=== PATIENT | female | born 1940 | race Caucasian/White ===

== ENCOUNTER 2017-11-11 06:27 | Day surgery (SDC) | payer MEDICARE ==
[2017-11-07 10:01] VITALS: BMI 27.0
[2017-11-11] MEDS ORDERED: CEFAZOLIN/Water 2 GM/20 ML SYRINGE ONE (07:38)
[2017-11-11] MEDS ORDERED: Famotidine/PF 20 mg/2ml Vial ONE (08:25)
[2017-11-11] MEDS ORDERED: Fentanyl 100 MCG/2 ML VIAL ONE (08:25)
[2017-11-11] MEDS ORDERED: Bupivacaine PF 0.5% 30 ML VIAL ONE (08:30)
[2017-11-11] MEDS ORDERED: Betamet Acet/Betamet Na Ph 30 MG/5 ML VIAL ONE (08:30)
[2017-11-11] MEDS ORDERED: Bacitracin Zinc Ointment 30 gm TUBE ONE (08:30)
[2017-11-11] MEDS ORDERED: hydrALAZINE 20 MG/ML VIAL ONE (08:39)
--- NOTE | 2017-11-11 10:44 | OP ---
DATE OF PROCEDURE: 11/11/2017 SURGEON: Dr. Zac Suarez PREOPERATIVE DIAGNOSES: 1. Left carpal tunnel syndrome. 2. Left thumb carpometacarpal osteoarthritis. PROCEDURE: 1. Left thumb carpometacarpal joint injection with 2 mL of Celestone, 80 mg per mL to the left thumb carpometacarpal joint under fluoroscopy. 2. Carpal tunnel release, left. TOURNIQUET TIME: 14 minutes total. COMPLICATIONS: None. FINDINGS: Tight transverse carpal ligament with mild stippling, center portion median nerve within t he transverse carpal ligament and carpal canal. DESCRIPTION OF PROCEDURE: After successful general anesthesia using propofol and mask technique augm ented by 12 mL of 0.5% Marcaine block given before prepping and draping sterilely, the patient had th e limb prepped and draped. Limb was exsanguinated, tourniquet inflated to 250 mmHg pressure. Then, outlined incision in line with the ring finger as far distal as Mckeon's cardinal lines for as proximal as 5 mm distal to the volar wrist flexion crease. The incision was 2.5 cm long, carried thr ough skin and subcutaneous tissue until we visualized the transverse carpal ligament. We retracted t he palmaris longus and went right under the bed through the center portion of the transcarpal ligamen t until we visualized nerve tissue. Then when the center point distal released it under direct visua lization using a combination of both a [place] blade and tenotomy scissors. Had a type 1 motor nerve takeoff which was preserved. There was no ganglion seen. We then under direct visualization using the same techniques and released the proximal one-half. It was completely free of the transverse carpal ligament. The transcarpal ligament was completely relea sed and visualized. We inspected the median nerve and found no tenosynovitis of the flexor tendons, but there was stippli ng without hourglass formation in the center portion of the median nerve under the transverse carpal ligament. We placed 3 mL of Celestone in a drip technique in this area. We then released the tourniquet and galeano d hemostasis, closed the wound with interrupted 4-0 nylon in a mattress pattern. We then brought the C-arm into the field, visualized directly the carpometacarpal joint, placed a nee dle over it. We distracted the joint and placed the needle inside under C-arm supervision in the fro ntal and sagittal plane. We injected 2 mL. There were no complications. Bulky dressing was applie d with bacitracin and Adaptic over the incisions and 4 x 4s, Kerlix underneath the Maxime wrap. She lef t the operating room without complications.
[2017-11-11] MEDS ORDERED: Ondansetron HCl/PF 4 MG/2 ML Vial ONE (14:53)
[2017-11-11] MEDS ORDERED: Ketorolac Tromethamine 30 MG/ML VIAL ONE (14:53)
[2017-11-11] MEDS ORDERED: Lidocaine 1% PF 5 ML VIAL ONE (14:53)
[2017-11-11] MEDS ORDERED: PROPOFOL 200 MG/20 ML VIAL ONE (14:53)
== END 2017-11-11 11:11 | disposition home or self-care (01) ==
LOC: SDC 06:27
PROVIDERS: ATTEND Orthopaedic Surgery Hand Surgery
PROC: 01N50ZZ Release Median Nerve, Open Approach (ICD-10-PCS; principal; 2017-11-11)
PROC: 3E0U33Z Introduction of Anti-inflammatory into Joints, Percutaneous Approach (ICD-10-PCS; 2017-11-11)
DX: G56.02 Carpal tunnel syndrome, left upper limb (principal); M18.12 Unilateral primary osteoarthritis of first carpometacarpal joint, left hand; K21.9 Gastro-esophageal reflux disease without esophagitis; Z86.711 Personal history of pulmonary embolism; Z79.82 Long term (current) use of aspirin; Z79.899 Other long term (current) drug therapy; Z88.2 Allergy status to sulfonamides; Z88.5 Allergy status to narcotic agent; Z88.6 Allergy status to analgesic agent
CPT/HCPCS: J0360; J0702; J1885; J2001; J2405; J2704; J3010; S0020; S0028